=== PATIENT | male | born 1950 | race Caucasian/White ===

== ENCOUNTER 2017-08-08 12:02 | Outpatient (CLI) | payer MEDICARE, BC | END 2017-08-08 12:03 | disposition home or self-care (01) | LOC: BICRAD 12:02 | PROVIDERS: ATTEND Internal Medicine | DX: R06.09 Other forms of dyspnea (principal) | CPT/HCPCS: 71046 ==

== ENCOUNTER 2017-08-15 12:18 | Outpatient (CLI) | payer MEDICARE, BC | END 2017-08-15 12:19 | disposition home or self-care (01) | LOC: BICULT 12:18 | PROVIDERS: ATTEND Internal Medicine | DX: R76.8 Other specified abnormal immunological findings in serum (principal) | CPT/HCPCS: 76536 ==

== ENCOUNTER 2018-12-17 12:00 | Outpatient (CLI) | payer MEDICARE ==
[2018-12-17 12:20] LABS: Hemoglobin A1c 5.8 % (4.0-6.0)
== END 2018-12-17 12:01 | disposition home or self-care (01) ==
LOC: LAB 12:00
PROVIDERS: ATTEND Internal Medicine
DX: R73.03 Prediabetes (principal)
CPT/HCPCS: 83036

== ENCOUNTER 2020-02-15 08:11 | Outpatient (CLI) | payer MEDICARE, OTHER ==
--- NOTE | 2020-02-15 09:19 | MRI ---
MR of the left shoulder without contrast INDICATION: Left shoulder pain. No history of injury or surgery TECHNIQUE: Sagittal T1, axial and coronal PD fat sat, sagittal and coronal T2 fat sat images were obt ained of the left shoulder. COMPARISON: Left shoulder radiograph dated October 20, 2019 FINDINGS: Rotator cuff: There is a partial-thickness bursal surface tear involving 50% of the supraspinatus ten don thickness at the footprint measuring 1.1 x 0.6 cm. There is mild supraspinatus and infraspinatus tendinosis. No rotator cuff muscular atrophy is present. Glenohumeral joint: Articular cartilage is intact. Glenoid labrum: Intact Biceps tendon and biceps anchor: Intact and located. Acromion clavicular joint: There is moderate AC joint hypertrophy with marginal osteophytes. No signi ficant encroachment is identified on the subjacent supraspinatus. Subacromial subdeltoid space: No appreciable fluid. Axillary region: No lymphadenopathy. Surrounding shoulder musculature: Normal. No evidence of atrophy or strain. IMPRESSION: 1. Partial-thickness bursal surface tear of the supraspinatus tendon at the footprint involving appro ximately 50% of the tendon thickness. 2. Mild supraspinatus and infraspinatus tendinosis. 3. Moderate AC joint osteoarthrosis.
== END 2020-02-15 08:12 | disposition home or self-care (01) ==
LOC: MRI 08:11
PROVIDERS: ATTEND Orthopaedic Surgery
DX: M75.22 Bicipital tendinitis, left shoulder (principal); M75.112 Incomplete rotator cuff tear or rupture of left shoulder, not specified as traumatic; M19.012 Primary osteoarthritis, left shoulder

== ENCOUNTER 2020-02-15 10:18 | Outpatient (CLI) | payer MEDICARE, OTHER ==
[2020-02-15 15:55] LABS: #Basophils 0.1 10x3/uL (0.0-0.2); #Eosinphils 0.3 10x3/uL (0.0-0.5); #Monocytes 0.5 10x3/uL (0.0-1.1); #Neutrophils 2.9 10x3/uL (1.5-8.4); %Basophils 1.2 % (0.0-2.0); %Eosinophils 5.3 % (0.0-6.0); %Monocytes 8.2 % (0.0-10.0); %Neutrophils 50.9 % (40.0-75.0); Hemoglobin 13.7 g/dL (14.0-18.0); Mean Corpuscular HGB CONC 31.6 G/DL (32.0-36.0); Mean Corpuscular Hemoglobin 27.3 PG (27.0-33.0); Mean Corpuscular Volume 86.6 fl (80.0-100.0); Mean Platelet Volume 10.1 fl (7.4-10.4); Platelet Count 261 10x3/uL (130-400); RBC Distribution Width 13.6 % (11.5-14.5); Red Blood Cell (RBC) Count 5.01 10x6/uL (4.40-5.80); White Blood Cell (WBC) Count 5.7 10x3/uL (4.5-11.0)
[2020-02-16 07:48] LABS: SARS-CoV-2 MS2 Positive; SARS-CoV-2 N Gene Negative; SARS-CoV-2 S Gene Negative; SARS-CoV-2 by NAA Not Detected (NotDetected); SARS-CoV-2 orf1ab Negative
== END 2020-02-15 10:19 | disposition home or self-care (01) ==
LOC: LABBT 10:18
PROVIDERS: ATTEND Orthopaedic Surgery
DX: Z01.818 Encounter for other preprocedural examination (principal); M75.102 Unspecified rotator cuff tear or rupture of left shoulder, not specified as traumatic; Z20.828 Contact with and (suspected) exposure to other viral communicable diseases
CPT/HCPCS: 85025; U0003; 87635

== ENCOUNTER 2020-02-18 06:06 | Day surgery (SDC) | payer MEDICARE, OTHER ==
[2020-02-17 10:57] VITALS: BMI 28.5
[2020-02-18] MEDS ORDERED: Fentanyl 100 MCG/2 ML VIAL ONE ×2 (06:19→06:31)
[2020-02-18] MEDS ORDERED: Lidocaine 1% (PF) 30 ML VIAL ONE (06:19)
[2020-02-18] MEDS ORDERED: Midazolam HCl 2 mg/2 ml Vial ONE (06:19)
[2020-02-18] MEDS ORDERED: HYDROmorphone 2 MG/ML VIAL SLOW IVP PRN (07:04)
[2020-02-18] MEDS ORDERED: Promethazine HCl 25 MG/ML VIAL SLOW IVP PRN (07:04)
[2020-02-18] MEDS ORDERED: Ondansetron HCl/PF 4 MG/2 ML Vial IVP PRN (07:04)
[2020-02-18] MEDS ORDERED: Morphine Sulfate 2 MG/ML SYRINGE SLOW IVP PRN (07:04)
[2020-02-18] MEDS ORDERED: Promethazine HCl 25 MG/ML VIAL IM PRN ×2 (07:04→07:45)
[2020-02-18] MEDS ORDERED: Fentanyl 100 MCG/2 ML VIAL IV PRN (07:32)
[2020-02-18] MEDS ORDERED: Ropivacaine 0.2% 550 ML 550 ML NERVE BLCK SCH (07:45)
[2020-02-18] MEDS ORDERED: Zolpidem Tartrate 5 MG TAB PO PRN (07:45)
[2020-02-18] MEDS ORDERED: Ondansetron PF 4 MG/2 ML Vial IVP PRN (07:45)
[2020-02-18] MEDS ORDERED: HYDROcodone/Acetaminophen 5/325 mg Tablet PO PRN ×2 (07:45)
[2020-02-18] MEDS ORDERED: traMADol HCl 50 MG TAB PO PRN ×2 (07:45)
[2020-02-18] MEDS ORDERED: SUGAMMADEX SODIUM 200 MG/2 ML VIAL ONE (08:26)
--- NOTE | 2020-02-18 09:10 | OP ---
DATE OF PROCEDURE: 02/18/2020 PROCEDURE PERFORMED: Left shoulder arthroscopic decompression, rotator cuff repair. ANESTHESIA: General. ESTIMATED BLOOD LOSS: Minimal. SPECIMEN: None. DRAINS: None. COMPLICATION: None. DESCRIPTION OF PROCEDURE: The patient was taken to the operating room, where general anesthesia was induced, placed in right lateral decubitus position. Left arm was placed in 15 pounds of traction, prepped and draped in usual sterile fashion. The scope was placed in the glenohumeral joint. He has intact biceps tendon. The labrum showed appropriate degeneration for age. No significant articular cartilage damage. Rotator cuff tear was easily identified. The scope was placed in the subacromial bursa. Extensive bursectomy was performed. CA ligament was taken down. Anterior and inferior acromioplasty were performed with the arthroscopic baylee. I freshened the greater tuberosity at the area of the rotator cuff tear. This was about a 1 cm tear. I freshened the margins of the tear and placed a FiberTape through the tendon in a horizontal mattress fashion and fixed this with a self-punching SwiveLock down to the freshened bleeding bone. A good watertight repair was obtained. The shoulder was then drained. Portals closed with nylon suture. Sterile dressing applied. There were no complications. Job ID: [id number]
[2020-02-18] MEDS ORDERED: ePHEDrine 50 MG/ML VIAL ONE (09:58)
[2020-02-18] MEDS ORDERED: PROPOFOL 200 MG/20 ML VIAL ONE (09:58)
[2020-02-18] MEDS ORDERED: Ropivacaine 0.5% HCl/PF (150 MG/30 ML VIAL) ONE (09:58)
[2020-02-18] MEDS ORDERED: Lidocaine 1% PF 5 ML VIAL ONE (09:58)
[2020-02-18] MEDS ORDERED: Ondansetron PF 4 MG/2 ML Vial ONE (09:58)
[2020-02-18] MEDS ORDERED: Dexamethasone 20 MG/5 ML VIAL ONE (09:58)
[2020-02-18] MEDS ORDERED: Rocuronium Bromide 10 MG/ML (10ML VIAL) ONE (09:58)
[2020-02-18] MEDS ORDERED: Ropivacaine 0.2% HCl/PF (40 MG/20 ML VIAL) ONE (09:58)
== END 2020-02-18 10:40 | disposition home or self-care (01) ==
LOC: SDC 06:06
PROVIDERS: ATTEND Orthopaedic Surgery
PROC: 0LQ24ZZ Repair Left Shoulder Tendon, Percutaneous Endoscopic Approach (ICD-10-PCS; principal; 2020-02-18)
PROC: 0RNK4ZZ Release Left Shoulder Joint, Percutaneous Endoscopic Approach (ICD-10-PCS; 2020-02-18)
PROC: 3E0T3BZ Introduction of Anesthetic Agent into Peripheral Nerves and Plexi, Percutaneous Approach (ICD-10-PCS; 2020-02-18)
DX: M75.112 Incomplete rotator cuff tear or rupture of left shoulder, not specified as traumatic (principal); M77.8 Other enthesopathies, not elsewhere classified; M19.012 Primary osteoarthritis, left shoulder; G89.18 Other acute postprocedural pain; I25.10 Atherosclerotic heart disease of native coronary artery without angina pectoris; E78.5 Hyperlipidemia, unspecified; E06.3 Autoimmune thyroiditis; F51.04 Psychophysiologic insomnia; N52.9 Male erectile dysfunction, unspecified; Z79.899 Other long term (current) drug therapy; Z20.828 Contact with and (suspected) exposure to other viral communicable diseases
CPT/HCPCS: 29826; 29827; 64416; 85025; 97139 ×2; A4306; C1713; U0003; 87635; J0690; J1100; J2001; J2250; J2405; J2704; J2795; J3010; J3490

== ENCOUNTER 2020-03-06 09:55 | Outpatient (CLI) | payer MEDICARE, OTHER ==
--- NOTE | 2020-03-06 14:04 | ULT ---
LEFT LOWER EXTREMITY VENOUS DUPLEX EXAM: HISTORY: Left leg pain and swelling. FINDINGS: Real-time color Doppler evaluation of the left lower extremity was performed from groin to calf. Thi s included evaluation of common femoral, superficial, and profunda femoral, saphenous, popliteal, and posterior tibial veins. This shows an extensive DVT beginning at the common femoral vein. In the u pper thigh region it shows nonocclusive thrombus, but in the mid to distal and popliteal area it appe ars to be occlusive to near occlusive. IMPRESSION: Extensive deep vein thrombosis of the left lower extremity. Findings were telephoned to Dr. Tripp. CODE CR POS: OFF
== END 2020-03-06 09:56 | disposition home or self-care (01) ==
LOC: BICULT 09:55
PROVIDERS: ATTEND Orthopaedic Surgery
DX: M79.605 Pain in left leg (principal); M79.89 Other specified soft tissue disorders; I82.402 Acute embolism and thrombosis of unspecified deep veins of left lower extremity

== ENCOUNTER 2020-05-22 08:51 | Outpatient (CLI) | payer MEDICARE, OTHER | END 2020-05-22 08:52 | disposition home or self-care (01) | LOC: BICULT 08:51 | PROVIDERS: ATTEND Internal Medicine | DX: I82.412 Acute embolism and thrombosis of left femoral vein (principal); I82.442 Acute embolism and thrombosis of left tibial vein ==

== ENCOUNTER 2020-12-26 13:26 | Outpatient (CLI) | payer MEDICARE, OTHER | END 2020-12-26 13:27 | disposition home or self-care (01) | LOC: BICRAD 13:26 | PROVIDERS: ATTEND Internal Medicine | DX: M25.552 Pain in left hip (principal); R26.89 Other abnormalities of gait and mobility; R29.898 Other symptoms and signs involving the musculoskeletal system; M25.562 Pain in left knee; M47.816 Spondylosis without myelopathy or radiculopathy, lumbar region | CPT/HCPCS: 36415; 72100; 80053; 80061; 82306; 83036; 84443; 85025; G0103 ==

== ENCOUNTER 2020-12-29 07:51 | Outpatient (CLI) | payer MEDICARE, OTHER | END 2020-12-29 07:52 | disposition home or self-care (01) | LOC: BICMRI 07:51 | PROVIDERS: ATTEND Internal Medicine | DX: R26.89 Other abnormalities of gait and mobility (principal); M48.061 Spinal stenosis, lumbar region without neurogenic claudication; M48.07 Spinal stenosis, lumbosacral region | CPT/HCPCS: 72148 ==

== ENCOUNTER 2021-07-20 10:23 | Outpatient (CLI) | payer MEDICARE, OTHER | END 2021-07-20 10:24 | disposition home or self-care (01) | LOC: BICMRI 10:23 | PROVIDERS: ATTEND Internal Medicine | DX: G45.9 Transient cerebral ischemic attack, unspecified (principal); M79.605 Pain in left leg; I67.82 Cerebral ischemia; I82.532 Chronic embolism and thrombosis of left popliteal vein; I82.512 Chronic embolism and thrombosis of left femoral vein | CPT/HCPCS: 70551 ==

== ENCOUNTER 2022-10-08 07:49 | Outpatient (CLI) | payer MEDICARE, OTHER ==
[2022-10-08 08:42] LABS: #Eosinphils 0.1 10x3/uL (0.0-0.5); #Monocytes 0.7 10x3/uL (0.0-1.1); #Neutrophils 2.2 10x3/uL (1.5-8.4); %Basophils 0.5 % (0.0-2.0); %Eosinophils 3.4 % (0.0-6.0); %Lymphocytes 25.1 % (18.0-47.0); %Monocytes 16.2 % (0.0-10.0); %Neutrophils 54.6 % (40.0-75.0); Hematocrit 40.6 % (38.8-50.0); Mean Corpuscular Hemoglobin 27.6 pg (27.0-33.0); Mean Corpuscular Volume 86.2 fl (81.2-95.1); Mean Platelet Volume 9.4 fl (7.4-10.4); Platelet Count 208 10x3/uL (150-450); RBC Distribution Width 13.9 % (11.5-14.5); Red Blood Cell (RBC) Count 4.71 10x6/uL (4.32-5.72); White Blood Cell (WBC) Count 4.1 10x3/uL (3.5-10.5)
[2022-10-08 08:57] LABS: ALT (SGPT) 32 U/L (8-55); AST (SGOT) 33 U/L (5-34); Albumin 4.1 g/dL (3.4-4.8); Alkaline Phosphatase 97 U/L (40-110); Anion Gap 15 mmol/L (10-20); BUN (Urea Nitrogen) 22 mg/dL (8.4-25.7); Bilirubin, Direct 0.4 mg/dL (0.1-0.3); Bilirubin, Total 0.9 mg/dL (0.2-1.2); Calc. Creatinine Clearance 0 mL/min (70-130); Calcium 8.3 mg/dL (7.8-10.44); Carbon Dioxide 26 mmol/L (23-31); Chloride 107 mmol/L (98-107); Estimated GFR 78; Globulin 2.5 g/dL (2.4-3.5); Glucose 95 mg/dL (83-110); Potassium 4.6 mmol/L (3.5-5.1); Protein, Total 6.6 g/dL (5.8-8.1); Sodium 143 mmol/L (136-145)
[2022-10-08 09:14] LABS: SARS-CoV-2 NAA Rapid Test DETECTED (NotDetected)
== END 2022-10-08 07:50 | disposition home or self-care (01) ==
LOC: LABBT 07:49
PROVIDERS: ATTEND Surgery
DX: U07.1 COVID-19 (principal); Z01.812 Encounter for preprocedural laboratory examination; K80.20 Calculus of gallbladder without cholecystitis without obstruction
CPT/HCPCS: 80053; 80076; 85025; U0002

== ENCOUNTER 2023-04-03 17:42 | Emergency (ER) | payer MEDICARE ==
[2023-04-03 18:37] LABS: #Basophils 0.1 thou/uL (0.0-0.2); #Eosinphils 0.2 thou/uL (0.0-0.7); #Monocytes 0.4 thou/uL (0.11-0.59); #Neutrophils 2.9 thou/uL (1.40-6.50); %Basophils 0.9 % (0.0-1.0); %Eosinophils 3.9 % (0.0-10.0); %Monocytes 8.1 % (0.0-10.0); %Neutrophils 53.9 % (42.0-75.0); Hematocrit 37.5 % (42.0-52.0); Hemoglobin 12.4 g/dL (14.0-18.0); Mean Corpuscular HGB CONC 33.1 g/dL (32.0-36.0); Mean Corpuscular Hemoglobin 28.8 pg (27.0-31.0); Mean Platelet Volume 10.3 fL (7.4-10.4); Platelet Count 216 10x3/uL (130-400); RBC Distribution Width 14.6 % (11.5-14.5); Red Blood Cell (RBC) Count 4.31 mill/uL (4.70-6.10); White Blood Cell (WBC) Count 5.3 10x3/uL (4.8-10.8)
[2023-04-03 18:53] LABS: INR-International Normal Ratio 1.1; PTT 31.8 sec (22.9-36.1); Prothrombin Time 14.3 sec (12.0-14.7)
[2023-04-03 19:19] LABS: ALT (SGPT) 17 U/L (8-55); AST (SGOT) 24 U/L (5-34); Alkaline Phosphatase 82 U/L (40-110); Anion Gap 11 mmol/L (10-20); BUN (Urea Nitrogen) 16 mg/dL (8.4-25.7); Bilirubin, Total 1.4 mg/dL (0.2-1.2); Calc. Creatinine Clearance 0 mL/min (70-130); Calcium 8.8 mg/dL (7.8-10.44); Carbon Dioxide 26 mmol/L (23-31); Chloride 106 mmol/L (98-107); Estimated GFR 93; Globulin 2.6 g/dL (2.4-3.5); Glucose 83 mg/dL (83-110); Potassium 3.9 mmol/L (3.5-5.1); Protein, Total 6.6 g/dL (5.8-8.1); Sodium 139 mmol/L (136-145)
== END 2023-04-03 20:50 | disposition home or self-care (01) ==
LOC: ERS 17:42
DX: D64.9 Anemia, unspecified (principal); Z55.6 Problems related to health literacy; Z98.890 Other specified postprocedural states
CPT/HCPCS: 36415; 80053; 82274; 85025; 85610; 85730; 86850; 86900; 86901; 93005

== ENCOUNTER 2023-12-05 20:01 | Emergency (ER) | payer MEDICARE ==
[2023-12-05 20:46] LABS: #Basophils 0.06 10x3/uL (0.0-0.2); %Basophils 1.2 % (0.0-1.0); %Eosinophils 5.1 % (0.0-10.0); %Lymphocytes 26.7 % (21.0-51.0); %Monocytes 12.6 % (0.0-10.0); %Neutrophils 54.2 % (42.0-75.0); Hematocrit 40.1 % (42.0-52.0); Hemoglobin 12.8 g/dL (14.0-18.0); Mean Corpuscular HGB CONC 31.9 g/dL (32.0-36.0); Mean Corpuscular Hemoglobin 27.9 pg (27.0-31.0); Mean Corpuscular Volume 87.4 fL (78.0-98.0); Mean Platelet Volume 9.8 fL (7.4-10.4); Platelet Count 212 10x3/uL (130-400); RBC Distribution Width 14.3 % (11.5-14.5); Red Blood Cell (RBC) Count 4.59 mill/uL (4.70-6.10)
[2023-12-05 21:03] LABS: ALT (SGPT) 20 U/L (8-55); AST (SGOT) 24 U/L (5-34); Albumin 3.8 g/dL (3.4-4.8); Alkaline Phosphatase 99 U/L (40-110); Anion Gap 9 mmol/L (10-20); BUN (Urea Nitrogen) 27 mg/dL (8.4-25.7); Bilirubin, Total 0.6 mg/dL (0.2-1.2); Calc. Creatinine Clearance 0 mL/min (70-130); Carbon Dioxide 23 mmol/L (23-31); Chloride 110 mmol/L (98-107); Estimated GFR 70; Glucose 99 mg/dL (83-110); Lipase 23 U/L (8-78); Magnesium 2.1 mg/dL (1.6-2.6); Potassium 4.2 mmol/L (3.5-5.1); Protein, Total 6.8 g/dL (5.8-8.1); Sodium 138 mmol/L (136-145)
[2023-12-05 21:06] LABS: Troponin I Less than 0.010 ng/mL (< 0.028)
== END 2023-12-05 23:02 | disposition home or self-care (01) ==
LOC: ERS 20:01
DX: R53.1 Weakness (principal); C44.90 Unspecified malignant neoplasm of skin, unspecified
CPT/HCPCS: 36415; 71045; 83690; 83735; 83880; 84443; 84484; 93005

== ENCOUNTER 2024-01-20 11:18 | Outpatient (CLI) | payer MEDICARE | END 2024-01-20 11:19 | disposition home or self-care (01) | LOC: BICCT 11:18 | PROVIDERS: ATTEND Internal Medicine Gastroenterology | DX: D3A.8 Other benign neuroendocrine tumors (principal); K52.9 Noninfective gastroenteritis and colitis, unspecified | CPT/HCPCS: 36415; 74177; 82565 ==